=== PATIENT | female | born 1980 ===

== ENCOUNTER 2025-03-27 08:30 | Inpatient (IN) | payer OTHER ==
[~2025-03-27] VITALS: Ht 165.1 cm; Wt 69.4 kg
[2025-03-27 09:39] LABS: BASO % 0.7 % (0.1-1.2); EOS # 0.10 (0.04-0.54); EOS % 1.2 % (0.7-7.0); LYMPH # 3.39 (1.18-3.74); LYMPH % 39.6 % (19.3-53.1); MEAN PLATELET VOLUME 11.80 fl (9.4-12.4); MONO # 0.50 (0.24-0.82); MONO % 5.8 % (4.7-12.5); NEUT # 4.49 (1.56-6.13); NEUT % 52.5 % (34.0-71.1); RED CELL DISTRIBUTION WIDTH 14.2 % (11.6-14.4)
[2025-03-27] MEDS ORDERED: ACID REDUCER20 M1 PO (09:57)
[2025-03-27 09:58] VITALS: BP 117/77
[2025-03-27 10:00] LABS: INR 1.13
[2025-03-27 10:21] LABS: ALT/SGPT 102.0 U/L (12-78); AST/SGOT 35.0 U/L (15-37); BILIRUBIN TOTAL 0.55 mg/dL (0.3-1.2); BUN CREA RATIO 13.0 (7.0-25.0); CREATININE SERUM 0.69 mg/dL (0.55-1.02); GFR 91.59; GLOBULINA 3.4 G/DL (2.4-3.5); GLUCOSE FASTING 94.0 mg/dL (65-100); OSMOLALITY SERUM 280.0 MOSM/KG (275-295)
[2025-03-27 10:39] LABS: URINE APPEARANCE Clear; URINE BILIRRUBIN Negative (NEGATIVE); URINE BLOOD Negative; URINE COLOR Yellow; URINE GLUCOSE Negative (NEGATIVE); URINE KETONE Negative (NEGATIVE); URINE LEUKOCYTE Negative; URINE NITRATE Negative; URINE PROTEIN Negative (NEGATIVE); URINE UROBILINOGEN 0.2 E.U./dl
[2025-03-27 10:41] LABS: URINE BACTERIA 551.8 uL (0.0-1933); URINE EPITHELIAL CELLS 9.8 uL (0.0-38.8); URINE WBC 7.2 uL (0.0-23.2)
[2025-03-27 10:43] LABS: URINE CAST 0.29 uL (0.0-1.40); URINE RBC 0.8 uL (0.0-20.8)
[2025-04-04] MEDS ORDERED: PANTOPRAZOLE SODIUM 40 MG/VIAL VIAL ONE (08:11)
[2025-04-04] MEDS ORDERED: CLINDAMYCIN PHOSPHATE 150 MG/ML (900mg) ONE ×2 (08:13→16:40)
[2025-04-04] MEDS ORDERED: POVIDONE-IODINE 118 ML BOTT TOP ONE (10:12)
[2025-04-04] MEDS ORDERED: HEMOSTATIC MATRIX 1 KIT KIT TOP ONE (11:38)
[2025-04-04] MEDS ORDERED: MORPHINE SULFATE 4 MG/ML VIAL IV ONE (13:35)
[2025-04-04] MEDS ORDERED: RINGERS SOLUTION,LACTATED 1,000 ML IV SCH (13:45)
[2025-04-04] MEDS ORDERED: CLINDAMYCIN PHOSPHATE 150 MG/ML (900mg) IV SCH (17:00)
[2025-04-04] MEDS ORDERED: ONDANSETRON HCL 2 MG/ML VIAL IV SCH (17:00)
[2025-04-04 17:40] VITALS: BP 123/78
[2025-04-04] MEDS ORDERED: MORPHINE SULFATE 4 MG/ML CARTRIDGE IV SCH (18:00)
[2025-04-05 00:34] VITALS: BP 132/71
[2025-04-05 04:30] VITALS: BP 121/77
[2025-04-05] MEDS ORDERED: KETOROLAC TROMETHAMINE 10 MG TABLET PO SCH (06:00)
[2025-04-05 08:00] VITALS: BP 127/80
[2025-04-05] MEDS ORDERED: DOCUSATE SODIUM 100MG CAP PO SCH (09:00)
[2025-04-05 19:10] VITALS: BP 125/80
[2025-04-05 21:20] VITALS: BP 131/83
[2025-04-06 00:24] VITALS: BP 108/76
[2025-04-06 08:00] VITALS: BP 122/85
== END 2025-04-06 10:06 | disposition home or self-care (01) | DRG 743 ==
LOC: SURH 04-04 07:00 → O/R 04-04 08:00 → SURH 04-04 08:30 → OB/GYN 04-04 13:19 → O/R 04-04 14:41 → OB/GYN 04-04 14:45
PROVIDERS: ADMIT Obstetrics & Gynecology; ATTEND Obstetrics & Gynecology
PROC: 0UT50ZZ Resection of Right Fallopian Tube, Open Approach (ICD-10-PCS; 2025-04-04)
PROC: 0UT00ZZ Resection of Right Ovary, Open Approach (ICD-10-PCS; 2025-04-04)
PROC: 0DN80ZZ Release Small Intestine, Open Approach (ICD-10-PCS; 2025-04-04)
PROC: 0UT90ZZ Resection of Uterus, Open Approach (ICD-10-PCS; principal; 2025-04-04 07:00)
DX: D25.1 Intramural leiomyoma of uterus (principal); N83.01 Follicular cyst of right ovary